=== PATIENT | male | born 1995 | race Caucasian/White ===

== ENCOUNTER 2024-06-29 08:29 | Emergency (ER) | payer OTHER ==
[~2024-06-29] VITALS: Ht 175.3 cm; Wt 90.9 kg
[2024-06-29 08:38] VITALS: BP 141/87; TEMP 98.7
[2024-06-29] MEDS ORDERED: Cyclobenzaprine 10 MG TAB PO ONE (09:15)
[2024-06-29] MEDS ORDERED: Naproxen 250 MG TAB PO ONE (09:15)
[2024-06-29] MEDS ORDERED: NAPROSYN500 MG PO (09:24)
[2024-06-29] MEDS ORDERED: FLEXERIL 1010 MG/TAB PO (09:24)
[2024-06-29 09:39] VITALS: PULSE 88
== END 2024-06-29 09:40 | disposition home or self-care (01) ==
LOC: COL.ER 08:29
DX: S39.012A Strain of muscle, fascia and tendon of lower back, initial encounter (principal); S16.1XXA Strain of muscle, fascia and tendon at neck level, initial encounter; Z98.890 Other specified postprocedural states; V49.40XA Driver injured in collision with unspecified motor vehicles in traffic accident, initial encounter; Y92.410 Unspecified street and highway as the place of occurrence of the external cause